=== PATIENT | female | born 1995 | race African-American/Black ===

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

== ENCOUNTER 2017-03-17 17:03 | Emergency (ER) | payer SELFPAY, OTHER ==
[2017-03-17 17:23] LABS: URINE HCG POC HCG NEGATIVE (Negative)
[2017-03-17] MEDS ORDERED: 0.9 % SODIUM CHLORIDE 10 ML DISP.SYRIN. IV (17:30)
[2017-03-17 17:31] LABS: BILIRUBIN,URINE SMALL (NEG); CLARITY,URINE CLEAR; COLOR,URINE AMBER; GLUCOSE,URINE NEGATIVE (NEG); NITRITE,URINE NEGATIVE (NEG); PH,URINE 5.5; PROTEIN,URINE NEGATIVE (NEG-TRACE); UROBILINOGEN,URINE 0.2 mg/dL (0.2 mg/dL)
[2017-03-17] MEDS: ONDANSETRON PF 4 MG/2 ML VIAL. IV (17:37)
[2017-03-17] MEDS: HYDROmorphone 2 MG/ML VIAL IV/SQ (17:38)
[2017-03-17] MEDS: IV NORMAL SALINE 1000ML BAG 1,000 ML IV (17:39)
[2017-03-17 17:44] LABS: BASO % 0 % (0-3); EOS % 0 % (0-3); HEMATOCRIT 46.3 % (36.0-47.0); LYMPH # 1.3 x10^3/uL (1.0-4.8); LYMPH % 11 % (24-48); MEAN CORPUSCULAR HEMOGLOBIN 29 pg (25-35); MEAN CORPUSCULAR HGB CONC 32 g/dL (31-37); MEAN CORPUSCULAR VOLUME 90 fL (79-100); MONO # 0.3 x10^3/uL (0.0-1.1); MONO % 3 % (0-9); NEUT # 10.6 x10^3uL (1.8-7.7); NEUT % 86 % (31-73); PLATELET COUNT 223 x10^3/uL (140-400); RED BLOOD COUNT 5.16 x10^6/uL (3.50-5.40); RED CELL DISTRIBUTION WIDTH 13.7 % (11.5-14.5); WHITE BLOOD COUNT 12.2 x10^3/uL (4.0-11.0)
[2017-03-17 17:45] LABS: ADD MAN DIFF? YES
[2017-03-17 17:55] LABS: ANION GAP 13 (6-14); BLOOD UREA NITROGEN 7 mg/dL (7-20); CALCIUM 8.7 mg/dL (8.5-10.1); CARBON DIOXIDE 24 mmol/L (21-32); CHLORIDE 105 mmol/L (98-107); CREATININE 0.7 mg/dL (0.6-1.0); GFR 130.4; GLUCOSE 103 mg/dL (70-99); POTASSIUM 3.5 mmol/L (3.5-5.1); SODIUM 142 mmol/L (136-145)
[2017-03-17 17:58] LABS: BACTERIA,URINE MODERATE /HPF (0-FEW); RBC,URINE OCC /HPF (0-2); SQUAMOUS EPITHELIAL CELL,UR MANY /LPF
[2017-03-17 18:01] LABS: ALBUMIN 4.5 g/dL (3.4-5.0); ALK PHOS 68 U/L (46-116); ALT (SGPT) 24 U/L (14-59); AST (SGOT) 17 U/L (15-37); DIRECT BILIRUBIN 0.2 mg/dL (0.0-0.2); LIPASE 149 U/L (73-393); TOTAL PROTEIN 8.2 g/dL (6.4-8.2)
[2017-03-17 18:59] LABS: % BANDS 1 % (0-9); % EOS 1 % (0-5); % LYMPHS 8 % (24-48); % MONOS 5 % (0-10); % SEGS 85 % (35-66); PLT ESTIMATE ADEQUATE (ADEQUATE)
== END 2017-03-17 20:04 | disposition home or self-care (01) ==
LOC: ER 17:03
DX: R10.13 Epigastric pain (principal); R00.0 Tachycardia, unspecified; R11.2 Nausea with vomiting, unspecified
CPT/HCPCS: 36415; 80048; 80076; 81001; 81025; 83690; 85007; 85025; 87086; 93005; 96361; 96374; 96375; 99285-25; J1170; J2405; J7030

== ENCOUNTER 2018-04-24 10:03 | Emergency (ER) | payer SELFPAY ==
[~2018-04-24] VITALS: Ht 157.5 cm; Wt 52.2 kg
[~2018-04-24 10:03] MED LIST changes: +DICY10CA53 PO; +ONDA4TAB10 PO
[2018-04-24 10:18] VITALS: BP 114/71
[2018-04-24 10:19] LABS: BILIRUBIN,URINE NEGATIVE (NEG); CLARITY,URINE CLEAR; COLOR,URINE YELLOW; NITRITE,URINE NEGATIVE (NEG); PROTEIN,URINE NEGATIVE (NEG-TRACE)
--- NOTE | 2018-04-24 10:21 | PHYS DOC ---
Past Medical History Past Medical History: No Pertinent History ([facility],ALEXA Brandt [employer] [place]) Past Surgical History: No Surgical History ([facility],ALEXA Brandt [employer] [place]) Alcohol Use: None Drug Use: None ([facility],ALEXA Brandt [employer]) Adult General Chief Complaint Chief Complaint: TEST [facility] HPI Patient is a 22 year old female who presents with last period the beginning of January patient is unknown of what day it was. Last Depo shoot beginning of January. Patient denies abdominal pain, nausea, vomiting, diarrhea, dysuria, vaginal discharge or bleeding. ([facility],ALEXA M [employer]) Review of Systems Review of Systems Constitutional: Denies fever or chills [] Eyes: Denies change in visual acuity, redness, or eye pain [] HENT: Denies nasal congestion or sore throat [] Respiratory: Denies cough or shortness of breath [] Cardiovascular: No additional information not addressed in HPI [] GI: Denies abdominal pain, nausea, vomiting, bloody stools or diarrhea [] : Denies dysuria or hematuria. test[] Musculoskeletal: Denies back pain or joint pain [] Integument: Denies rash or skin lesions [] Neurologic: Denies headache, focal weakness or sensory changes [] All other systems were reviewed and found to be within normal limits, except as documented in this note. ([facility],[employer]EXA [employer]) Allergies Allergies Allergies Coded Allergies Type Severity Reaction Last Updated Verified No Known Drug Allergies 06/25/13 No (FRANKIE CARBALLO MD) Physical Exam Physical Exam Constitutional: Well developed, well nourished, no acute distress, non-toxic appearance. [] HENT: Normocephalic, atraumatic, bilateral external ears normal, oropharynx moist, no oral exudates, nose normal. [] Eyes: PERRLA, EOMI, conjunctiva normal, no discharge. [] Neck: Normal range of motion, no tenderness, supple, no stridor. [] Cardiovascular:Heart rate regular rhythm, no murmur [] Lungs & Thorax: Bilateral breath sounds clear to auscultation [] Abdomen: Bowel sounds normal, soft, no tenderness, no masses, no pulsatile masses. [] Skin: Warm, dry, no erythema, no rash. [] Back: No tenderness, no CVA tenderness. [] Extremities: No tenderness, no cyanosis, no clubbing, ROM intact, no edema. [] Neurologic: Alert and oriented X 3, normal motor function, normal sensory function, no focal deficits noted. [] Psychologic: Affect normal, judgement normal, mood normal. [] Normal Physical Exam (ALEXA HUNTER APRN) Current Patient Data Vital Signs Vital Signs Date Time Temp Pulse Resp B/P (MAP) Pulse Ox O2 Delivery O2 Flow Rate FiO2 04/24/18 10:18 98.6 84 18 114/71 (85) 100 Room Air 98.6 (FRANKIE CARBALLO MD) Lab Values Laboratory Tests Test 04/24/18 10:10 04/24/18 10:12 Urine Collection Type Unknown Urine Color Yellow Urine Clarity Clear Urine pH 7.0 Urine Specific [place] 1.015 Urine Protein Negative mg/dL (NEG-TRACE) Urine Glucose (UA) Negative mg/dL (NEG) Urine Ketones (Stick) Negative mg/dL (NEG) Urine Blood Negative (NEG) Urine Nitrite Negative (NEG) Urine Bilirubin Negative (NEG) Urine Urobilinogen Dipstick 1.0 mg/dL (0.2 mg/dL) Urine Leukocyte Esterase Small (NEG) Urine RBC 0 /HPF (0-2) Urine WBC 0 /HPF (0-4) Urine Squamous Epithelial Cells Many /LPF Urine Bacteria 0 /HPF (0-FEW) Urine Mucus Mod /LPF POC Urine HCG, Qualitative Hcg positive (Negative) (FRANKIE CARBALLO MD) EKG EKG [] (ALEXA HUNTER APRN) Radiology/Procedures Radiology/Procedures [] (ALEXA HUNTER APRN) Course & Med Decision Making Course & Med Decision Making Patient is a 22 year old female who presents with last period the beginning of January patient is unknown of what day it was. Last Depo shoot beginning of January. Patient denies abdominal pain, nausea, vomiting, diarrhea, dysuria, vaginal discharge or bleeding. test positive. Alert and oriented. Ambulatory with a steady gait. Skin pink warm and dry. Mucous membranes moist. Lungs are clear to auscultation all lobes. Vital signs within normal limits. Heart regular without murmur. Patient will be referred to a parish worker to follow-up with. (ALEXA HUNTER APRN) Course & Med Decision Making Staff Physician Addendum: I was working in the ER during the course of this patient's visit. I was available for consultation as needed, but I was not directly involved in the care of this patient. (FRANKIE CARBALLO MD) Dragon Disclaimer Dragon Disclaimer This electronic medical record was generated, in whole or in part, using a voice recognition dictation system. (ALEXA HUNTER APRN) Departure Departure Impression: Primary Impression: Disposition: 01 HOME, SELF-CARE Condition: STABLE Referrals: EVA BAUMANN MD (PCP) VAMSHI HERR Jr, MD Patient Instructions: ABCs of Additional Instructions: Follow up with a OB doctor as soon as possible. Begin taking vitamins. Drink plenty of water. Problem Qualifiers Primary Impression: Weeks of gestation: unspecified Qualified Codes: Z34.90 - Encounter for supervision of normal , unspecified, unspecified trimester ALEXA HUNTER APRN Apr 24, 2018 10:21 FRANKIE CARBALLO MD Apr 24, 2018 12:40
[2018-04-24 10:24] LABS: BACTERIA,URINE 0 /HPF (0-FEW); RBC,URINE 0 /HPF (0-2); SQUAMOUS EPITHELIAL CELL,UR MANY /LPF; WBC,URINE 0 /HPF (0-4)
== END 2018-04-24 10:33 | disposition home or self-care (01) ==
LOC: ER 10:03
DX: Z32.01 Encounter for pregnancy test, result positive (principal)
CPT/HCPCS: 81001; 81025; 87086; 99283

== ENCOUNTER 2018-05-27 09:59 | Observation (INO) | payer MEDICAID ==
[2018-05-27] MEDS ORDERED: IV RINGERS,LACTATED 1000ML 1,000 ML IV PRN (10:00)
[2018-05-27] MEDS ORDERED: ONDANSETRON PF 4 MG/2 ML VIAL. IV PRN (10:00)
[2018-05-27] MEDS ORDERED: MAG HYDROX/ALUMINUM HYD/SIMETH 30 ML ORAL.SUSP PO PRN (10:00)
[2018-05-27] MEDS ORDERED: ACETAMINOPHEN 325 MG TABLET. PO PRN (10:00)
[2018-05-27 10:39] LABS: BILIRUBIN,URINE NEGATIVE (NEG); CLARITY,URINE CLEAR; COLOR,URINE YELLOW; NITRITE,URINE NEGATIVE (NEG); PH,URINE 6.5; PROTEIN,URINE NEGATIVE (NEG-TRACE)
[2018-05-27 10:46] LABS: AMPHETAMINE/METHAMPHETAMINE NEG (NEG); BARBITURATES NEG (NEG); BENZODIAZEPINES NEG (NEG); CANNABINOIDS POS (NEG); COCAINE NEG (NEG); METHADONE NEG (NEG); OPIATES NEG (NEG); PHENCYCLIDINE NEG (NEG)
[2018-05-27 10:54] LABS: BACTERIA,URINE FEW /HPF (0-FEW); RBC,URINE 0 /HPF (0-2); SQUAMOUS EPITHELIAL CELL,UR MOD /LPF
--- NOTE | 2018-05-27 12:24 | RAD ---
EXAM: Obstetrics sonogram. HISTORY: Vaginal bleeding. Placental location assessment. TECHNIQUE: Sonographic imaging of a gravid uterus was performed. COMPARISON: None. FINDINGS: There is a single intrauterine fetus in cephalic presentation with a heart rate of 137 bpm. The cervix is closed and measures 4.1 cm in length. There is an anterior placenta without evidence of placenta previa. The amniotic fluid index is normal at 13.0 cm. The biparietal diameter is 5.32 cm, corresponding with 22 weeks and 1 day. The head circumference is 19.71 cm, corresponding with 21 weeks and 6 days. The abdominal circumference is 18.01 cm, corresponding with 22 weeks and 6 days. The femoral length is 3.8 cm, corresponding with 20 weeks and 3 days. The estimated gestational age based on combined ultrasound measurements is 22 weeks and 2 days and the estimated due date is 09/28/2018. The estimated weight is 517 g. IMPRESSION: 1. Single intrauterine fetus in cephalic presentation with a heart rate of 137 bpm and gestational age based on ultrasound measurements of 22 weeks and 2 days. 2. Anterior placenta without evidence of placenta previa. 3. Note is the anatomy is not formally assessed on this exam. Electronically signed by: Connie Smyth MD (05/27/2018 12:21 PM) [id number]
== END 2018-05-27 12:41 | disposition home or self-care (01) ==
LOC: 3 SO LND 09:59
PROVIDERS: ADMIT Obstetrics & Gynecology; ATTEND Obstetrics & Gynecology
DX: O26.852 Spotting complicating pregnancy, second trimester (principal); O26.892 Other specified pregnancy related conditions, second trimester; R10.30 Lower abdominal pain, unspecified; Z3A.22 22 weeks gestation of pregnancy
CPT/HCPCS: 76805; 80307; 81001; 87086; G0378; G0379

== ENCOUNTER 2020-09-28 17:07 | Emergency (ER) | payer MEDICAID | END 2020-09-28 18:45 | disposition left against medical advice (07) | LOC: ER 17:07 | DX: M25.571 Pain in right ankle and joints of right foot (principal); Z53.21 Procedure and treatment not carried out due to patient leaving prior to being seen by health care provider ==